=== PATIENT | female | born 2005 | race Caucasian/White ===

== ENCOUNTER 2024-05-03 08:35 | Emergency (ER) | payer OTHER ==
[~2024-05-03] VITALS: Ht 167.6 cm; Wt 72.6 kg
[2024-05-03 08:45] VITALS: BP 111/79; PULSE 85; RESP 18; TEMP 98.1; O2SAT 99
[2024-05-03 09:31] VITALS: O2SAT 99
[2024-05-03 10:02] LABS: APPEARANCE,URINE CLOUDY (CLEAR); BILIRUBIN,URINE NEGATIVE (NEGATIVE); BLOOD, URINE 3+ (NEGATIVE); LEUKOCYTE ESTERASE ,URINE 2+ (NEGATIVE); NITRITE, URINE POSITIVE (NEGATIVE); PROTEIN,URINE 2+ (NEGATIVE); UGLUCOSE NEGATIVE (NEGATIVE); UROBILINOGEN,URINE 0.2 EU/dL (0.2 - 1)
[2024-05-03 10:04] LABS: COLOR,URINE AMBER (YELLOW)
[2024-05-03] MEDS: IBUPROFEN 600 MG TAB PO ONE (10:10)
[2024-05-03 10:13] LABS: BACTERIA,URINE 10-30 (MOD) /HPF (None Seen); MUCUS,URINE 1+ /LPF (None Seen); RBC,URINE 11-20 (MOD) /HPF (0-5); SQUAMOUS EPITHELIAL CELL,UR 0-3 (FEW) /LPF (0-3 (FEW))
[2024-05-03] MEDS ORDERED: PYR100 PO (11:08)
[2024-05-03] MEDS ORDERED: CEFP200T20 PO (11:08)
== END 2024-05-03 11:20 | disposition home or self-care (01) ==
LOC: MED 08:35
DX: N12 Tubulo-interstitial nephritis, not specified as acute or chronic (principal); Z79.899 Other long term (current) drug therapy
CPT/HCPCS: 81001; 81025; 87086; 87186; 99283